=== PATIENT | female | born 1995 | race Caucasian/White ===

== ENCOUNTER 2023-10-20 11:27 | Outpatient (CLI) | payer MEDICAID | END 2023-10-20 23:59 | disposition home or self-care (01) | LOC: RAD 11:27 | DX: M25.561 Pain in right knee (principal); M25.661 Stiffness of right knee, not elsewhere classified | CPT/HCPCS: 73564 ==

== ENCOUNTER 2023-12-19 13:30 | Outpatient (CLI) | payer MEDICAID | END 2023-12-19 23:59 | disposition home or self-care (01) | LOC: MRI 13:30 | PROVIDERS: ATTEND Family Medicine | DX: M71.22 Synovial cyst of popliteal space [Baker], left knee (principal); M25.561 Pain in right knee; M25.562 Pain in left knee | CPT/HCPCS: 73721 ==